=== PATIENT | female | born 1985 | race Caucasian/White ===

== ENCOUNTER 2017-10-04 07:27 | Day surgery (SDC) | payer BC ==
[~2017-10-04 07:27] MED LIST: Sodium Chloride 0.9% 10 ML Syringe FLUSH PRN; cefOXitin 2 GM in Sodium Chloride 0.9% 100 ML IV ONE
[2017-10-04] MEDS ORDERED: Sodium Chloride 0.9% 10 ML Syringe FLUSH PRN (07:45)
[2017-10-04] MEDS ORDERED: Lactated Ringers 1,000 ML IV SCH (08:45)
[2017-10-04] MEDS ORDERED: Lactated Ringers 1,000 ML IV ONE (09:00)
[2017-10-04] MEDS ORDERED: Ondansetron 4 MG/2 ML SDV IVPUSH ONE (09:00)
[2017-10-04] MEDS ORDERED: Neostigmine Methylsulfate 10 MG/10 ML MDV IVPUSH ONE (09:00)
[2017-10-04] MEDS ORDERED: Glycopyrrolate 0.2 MG/ML 2 ML SDV IV ONE (09:00)
[2017-10-04] MEDS ORDERED: Lidocaine 2% 100 MG/5 ML Syringe IVPUSH ONE (09:00)
[2017-10-04] MEDS ORDERED: Propofol 200 MG/20 ML SDV IV ONE (09:00)
[2017-10-04] MEDS ORDERED: Midazolam 1 MG/ML 2 ML SDV IV ONE (09:00)
[2017-10-04] MEDS ORDERED: fentaNYL 100 MCG/2 ML SDV IV ONE (09:00)
[2017-10-04] MEDS ORDERED: cefOXitin 2 GM in Sodium Chloride 0.9% 100 ML IV ONE (09:00)
[2017-10-04] MEDS ORDERED: diphenhydrAMINE 50 MG/ML SDV IV ONE (09:00)
[2017-10-04] MEDS ORDERED: Rocuronium 100 MG/10 ML MDV IV ONE (09:00)
[2017-10-04] MEDS ORDERED: Clindamycin in 0.9 % Sod Chlor 900 MG/50 ML BAG IV ONE (09:00)
[2017-10-04] MEDS ORDERED: Dexamethasone 4 MG/ML 5 ML MDV IVPUSH ONE (09:00)
[2017-10-04] MEDS ORDERED: Succinylcholine 200 MG/10 ML MDV IV ONE (09:00)
[2017-10-04] MEDS ORDERED: Ketorolac 30 MG/ML SDV IVPUSH ONE (09:00)
[2017-10-04] MEDS ORDERED: Acetaminophen/HYDROcodone 325-5 MG Tab PO PRN (09:43)
[2017-10-04] MEDS ORDERED: Morphine 2 MG/ML Syringe IVPUSH PRN (09:50)
--- NOTE | 2017-10-04 09:50 | PCM.OPNOTE ---
- General Post-Op/Procedure Note Date of Surgery/Procedure: 10/04/17 Operative Procedure(s): lap cholecystectomy Findings: critical view obtained. Pre Op Diagnosis: gallbladder sludge Post-Op Diagnosis: Same Anesthesia Technique: General ET Tube, Local (6 ml 1 % ldio with epi/0.5% buvipicaine) Primary Surgeon: Xander Fischer Anesthesia Provider: Sharona Berry Pathology: gallbladder and contents Complications: None Condition: Good Free Text/Narrative:: see dictation [id number]
--- NOTE | 2017-10-04 11:44 | OR ---
DATE OF OPERATION: 10/04/2017 SURGEON: Xander Fischer MD PROCEDURE PERFORMED: Laparoscopic cholecystectomy. PREOPERATIVE DIAGNOSIS: Gallbladder sludge. POSTOPERATIVE DIAGNOSIS: Gallbladder sludge. INDICATIONS FOR PROCEDURE: This is a 32-year-old white female who has a history of right upper quadrant abdominal pain and gallbladder sludge on ultrasound. She was offered and accepted a laparoscopic cholecystectomy. DESCRIPTION OF OPERATION: After an excellent IV sedation was administered, the area just below the umbilicus was infiltrated with a 1:1 mixture of 1% lidocaine with epinephrine and 0.5% bupivacaine. A small vertical midline incision was then made. Blunt dissection was carried out exposing the midline fascia and 2 stay sutures were placed on either side of the fascia, which was then elevated. The midline fascia was incised and the abdominal cavity was entered after digital palpation to ensure no adhesions. A 10.5 Jamilah trocar was inserted into the patient's abdomen which was then insufflated to 15 mmHg. The patient was placed in reverse Trendelenburg with slight airplane to the left and under direct visualization, three 5 mm ports were placed, one in the midline epigastrium and two below the right costal margin at the approximate level of the midclavicular and anterior axillary lines. This was done by infiltrating with local, making a stab incision through the skin and then inserting our trocars. A total of 6 mL of our local mixture was used. The gallbladder was grasped, retracted in a cephalad fashion. Adhesions were taken down exposing the infundibulum and then careful dissection was carried out exposing the cystic duct and cystic artery. After obtaining a critical view, two clips were placed proximally on the cystic duct and one distally which was then transected. Two clips were placed proximally on the cystic artery and one distal, which was then transected. L-hook cautery was then used to dissect the gallbladder free from the gallbladder fossa. The specimen was passed into a specimen bag and delivered out through the umbilicus. The area was irrigated and after assuring excellent hemostasis, the trocars were removed under direct visualization and the pneumoperitoneum was released. The umbilical incision was closed with a [id number] 0 Vicryl and the 2 stay sutures were tied to each other. The skin was closed with subcu 4-0 Vicryl. Steri-Strips were applied. Needle, sponge, and instrument counts were reported as correct. The patient was taken to recovery in good condition. /[id number] /MODL
== END 2017-10-04 11:34 | disposition home or self-care (01) ==
LOC: FB.SDS 07:27
PROVIDERS: ATTEND Surgery
DX: K81.1 Chronic cholecystitis (principal); Z88.8 Allergy status to other drugs, medicaments and biological substances; Z98.890 Other specified postprocedural states; Z87.891 Personal history of nicotine dependence
CPT/HCPCS: 47562; 81025; 88304; A9270; J0330; J1100; J1200; J1885; J2250; J2270; J2405; J2704; J2710; J3010; J3490; J7120